=== PATIENT | male | born 1980 | race African-American/Black ===

== ENCOUNTER 2022-07-01 17:45 | Emergency (ER) | payer MEDICAID ==
[~2022-07-01] VITALS: Ht 175.3 cm; Wt 100.0 kg
[2022-07-01 18:06] VITALS: BP 183/112
[2022-07-01] MEDS ORDERED: TETANUS, DIPHTHERIA, PERTUSSIS VAC/PF 0.5ML (>10YR OLD) IM ONE (18:45)
[2022-07-01] MEDS ORDERED: BACITRACIN ZINC OINT UDPKT TOP ONE (18:45)
[2022-07-01] MEDS ORDERED: CEPH500C2 MT (19:28)
== END 2022-07-01 20:08 | disposition home or self-care (01) ==
LOC: ER 17:45
DX: S71.111A Laceration without foreign body, right thigh, initial encounter (principal); X58.XXXA Exposure to other specified factors, initial encounter; Y93.39 Activity, other involving climbing, rappelling and jumping off; Y92.89 Other specified places as the place of occurrence of the external cause; Y99.8 Other external cause status
CPT/HCPCS: 12002; 73130; 90471; 90715; 99283; Z7610

== ENCOUNTER 2022-07-09 12:05 | Emergency (ER) | payer MEDICAID ==
[~2022-07-09] VITALS: Ht 167.6 cm; Wt 129.0 kg
[~2022-07-09 12:05] MED LIST: CEPH500C2 MT
[2022-07-09 12:12] VITALS: BP 154/82
== END 2022-07-09 12:24 | disposition home or self-care (01) ==
LOC: ER 12:05
DX: Z48.02 Encounter for removal of sutures (principal)
CPT/HCPCS: 99281; Z7610

== ENCOUNTER 2022-10-21 15:48 | Emergency (ER) | payer MEDICAID ==
[~2022-10-21] VITALS: Ht 175.3 cm; Wt 95.0 kg
[~2022-10-21 15:48] MED LIST changes: +IBUP-2029 MT; +SULF1TAB48 MT
[2022-10-21 16:03] VITALS: BP 169/105; PULSE 100; RESP 20; TEMP 98.3; O2SAT 100
[2022-10-21] MEDS ORDERED: BACITRACIN ZINC OINT UDPKT TOP ONE (17:15)
[2022-10-21] MEDS ORDERED: LIDOCAINE HCL/PF 1% 10 MG/ML 5ML VIAL INFIL ONE (17:15)
[2022-10-21] MEDS ORDERED: SULF1TAB48 MT (18:28)
[2022-10-21] MEDS ORDERED: IBUP-2029 PO (18:28)
[2022-10-21] MEDS ORDERED: CEPH500C2 MT (18:28)
== END 2022-10-21 18:42 | disposition home or self-care (01) ==
LOC: ER 15:48
DX: L02.415 Cutaneous abscess of right lower limb (principal)
CPT/HCPCS: 10060; 99283; Z7610 ×4

== ENCOUNTER 2023-08-25 17:01 | Emergency (ER) | payer MEDICAID ==
[~2023-08-25] VITALS: Ht 175.3 cm; Wt 108.0 kg
[~2023-08-25 17:01] MED LIST changes: +IBUP-2029 PO
[2023-08-25 17:17] VITALS: BP 170/101; PULSE 95; RESP 12; TEMP 98.3; O2SAT 97
[2023-08-25] MEDS ORDERED: NAPR-1176 MT (19:51)
== END 2023-08-25 20:01 | disposition home or self-care (01) ==
LOC: ER 17:01
DX: M25.512 Pain in left shoulder (principal); M54.50 Low back pain, unspecified; V49.9XXA Car occupant (driver) (passenger) injured in unspecified traffic accident, initial encounter; Y93.89 Activity, other specified; Y92.89 Other specified places as the place of occurrence of the external cause; Y99.8 Other external cause status
CPT/HCPCS: 99282

== ENCOUNTER 2024-02-01 12:12 | Emergency (ER) | payer MEDICAID ==
[~2024-02-01] VITALS: Ht 175.3 cm; Wt 107.0 kg
[~2024-02-01 12:12] MED LIST changes: +NAPR-1176 MT
[2024-02-01 12:32] VITALS: O2SAT 100
[2024-02-01 12:41] VITALS: BP 167/115; PULSE 81; RESP 18; TEMP 97.9; O2SAT 100
[2024-02-01] MEDS ORDERED: METH-653 MT (14:18)
[2024-02-01] MEDS ORDERED: IBUP-2029 MT (14:18)
== END 2024-02-01 14:37 | disposition home or self-care (01) ==
LOC: ER 12:12
DX: S33.5XXA Sprain of ligaments of lumbar spine, initial encounter (principal); S63.91XA Sprain of unspecified part of right wrist and hand, initial encounter; V49.9XXA Car occupant (driver) (passenger) injured in unspecified traffic accident, initial encounter; Y93.89 Activity, other specified; Y92.89 Other specified places as the place of occurrence of the external cause; Y99.8 Other external cause status
CPT/HCPCS: 99283